=== PATIENT | male | born 1990 | race Caucasian/White ===

== ENCOUNTER 2017-03-12 01:20 | Emergency (ER) | payer MEDICAID, OTHER ==
[~2017-03-12] VITALS: Ht 167.6 cm; Wt 111.0 kg
[2017-03-12 05:12] VITALS: BP 154/115
[2017-03-12] MEDS ORDERED: TETANUS, DIPHTHERIA, PERTUSSIS VAC/PF 0.5ML (>7YR OLD) IM ONE (05:30)
== END 2017-03-12 05:50 | disposition home or self-care (01) ==
LOC: ER 05:43
DX: S61.051A Open bite of right thumb without damage to nail, initial encounter (principal); W64.XXXA Exposure to other animate mechanical forces, initial encounter; Y93.89 Activity, other specified; Y92.89 Other specified places as the place of occurrence of the external cause; Y99.8 Other external cause status
CPT/HCPCS: 90471; 90715; 99283

== ENCOUNTER 2019-08-17 14:48 | Emergency (ER) | payer MEDICAID ==
[~2019-08-17] VITALS: Ht 165.1 cm; Wt 123.0 kg
[2019-08-17 15:12] VITALS: BP 139/100
[2019-08-17] MEDS ORDERED: LORAZEPAM 1MG TABLET PO ONE (15:45)
== END 2019-08-17 17:16 | disposition home or self-care (01) ==
LOC: ER 14:48
DX: F41.0 Panic disorder [episodic paroxysmal anxiety] (principal); E11.9 Type 2 diabetes mellitus without complications; R00.0 Tachycardia, unspecified; F41.9 Anxiety disorder, unspecified
CPT/HCPCS: 71045; 82962; 99284